=== PATIENT | male | born 1950 | race Caucasian/White ===

== ENCOUNTER 2019-02-03 05:26 | Inpatient (IN) | payer OTHER, BC ==
[2019-01-12 09:28] LABS: HEMATOCRIT 44.8 % (42.0-52.0); HEMOGLOBIN 15.1 gm/dL (14.0-18.0); MCHC 33.6 g/dL (28.0-37.0); MCV 92.1 fL (80.0-100.0); RBC 4.86 mil/uL (4.50-6.00); WBC 5.3 thou/uL (4.0-11.0)
[2019-01-12 09:36] LABS: ALBUMIN 3.8 g/dL (3.4-5.0); CALCIUM 9.2 mg/dL (8.5-10.1); CREATININE 0.9 mg/dL (0.7-1.3); POTASSIUM 4.4 mmol/L (3.5-5.1)
[2019-01-12 09:39] LABS: URINE BILIRUBIN NEGATIVE (Negative); URINE BLOOD NEGATIVE (Negative); URINE CLARITY CLEAR; URINE COLOR YELLOW; URINE GLUCOSE-RANDOM* NEGATIVE (Negative); URINE KETONES NEGATIVE (Negative); URINE LEUKOCYTES-REFLEX NEGATIVE (Negative); URINE NITRITE-REFLEX NEGATIVE (Negative); URINE PROTEIN (DIPSTICK) NEGATIVE (Negative); URINE UROBILINOGEN 0.2 E.U./dl (0.2-1.0)
[2019-01-12 09:44] LABS: PROTIME 10.5 Seconds (9.3-11.4)
--- NOTE | 2019-01-12 12:36 | EKG ---
[place] [address] [facility] [employer] [place] [address] ELECTROCARDIOGRAM REPORT Name: VIDYA MARTINEZ Room #: PRE IN .R.#: [id number] ������������������ Admission: ������������������ Attend Phys: Isidoro Damon MD Discharge: ������������������ Date of : 48 Report #: [id number] ����������������������������������������������������������������� [id number] THIS REPORT FOR: //name// [facility] Test Date: 2019-01-12 Test Time: 09:32:38 Pat Name: VIDYA MICHELLE Department: Room: Gender: Shale Miner: lorenza : 1950 Requested By: Isidoro Damon Order Number: [id number] MD: Myrno Valle Measurements Intervals [place] Rate: 71 P: 66 CA: 156 QRS: 63 QRSD: 110 T: 26 QT: 400 QTc: 435 Interpretive Statements Sinus rhythm RSR' in V1 or V2, right VCD No previous ECG available for comparison Electronically Signed On 01-12-2019 12:36:33 CDT by Myron Valle [email or web address] ��������������������������������������������� <ELECTRONICALLY SIGNED> ���������������������������������������� By: Myron Valle MD, [facility] ��������������������������������������������� 01/12/19 1236 0932 09 Myron Valle MD, [facility] /EPI
[~2019-02-03] VITALS: Ht 177.8 cm; Wt 77.1 kg
--- NOTE | ~2019-02-03 | O ---
[facility] [place] [address] OPERATIVE REPORT Name: VIDYA MARTINEZ Room #: 150-7 ADM IN M.R.#: [id number] Admission: 02/03/19 ������������������ Attend Phys: Isidoro Damon MD Discharge: ������������������ Date of : 48 Report #: [id number] THIS REPORT FOR: //name// CC: FAM unknown Isidoro Damon DATE OF SERVICE: 02/03/2019 PREOPERATIVE DIAGNOSIS: Bilateral knee osteoarthritis. POSTOPERATIVE DIAGNOSIS: Bilateral knee osteoarthritis. PROCEDURE: Bilateral total knee arthroplasty using Navio robotic assistance. SURGEON: Isidoro Damon MD. MAIL ORDER SORTER: Odalys Saxena PA-C. INDICATIONS FOR MAIL ORDER SORTER: Throughout the case, extensive retraction and manipulation of the knee were required. This was afforded to me by my him assistant. ANESTHESIA: LMA with bilateral adductor canal block. IMPLANTS: For the right knee is [employer] size 6 Legion cobalt chrome posterior stabilized femur, a size 5 tibia, size 11 highly constrained polyethylene and a size 35 patella. For the left knee is a size 6 Legion cobalt chrome posterior stabilized femur, a size 5 tibia, size 9 highly constrained polyethylene and a size 35 patella. TOURNIQUET TIME: 69 minutes for the left knee and 62 minutes for the right knee. ESTIMATED BLOOD LOSS: 50 mL. COMPLICATIONS: None. SPECIMENS: None. CONDITION UPON LEAVING THE OPERATING ROOM: Stable. INDICATIONS FOR PROCEDURE: The patient is a 68-year-old gentleman with bilateral knee osteoarthritis. He had failed conservative measures for this and after discussion with him, he elected for bilateral total knee arthroplasty. DESCRIPTION OF PROCEDURE: Risks, benefits, alternatives, complications were [facility] [address] [place] [address] OPERATIVE REPORT Name: VIDYA MARTINEZ Room #: 150-7 ADM IN M.R.#: [id number] Admission: 02/03/19 ������������������ Attend Phys: Isidoro Damon MD Discharge: ������������������ Date of : 48 Report #: [id number] discussed in detail with the patient including but not limited to risk of anesthesia, risk of damage to nerves, arteries, blood vessels, risk for infection, bleeding, risk for continued knee pain and need for reoperation. Informed consent was obtained from the patient. Bilateral knees were appropriately marked in the preoperative holding area. Adductor canal blocks were placed by Anesthesia. IV Ancef was given for preoperative antibiotics. He was brought to the operating room and placed in the supine position on operating room table. LMA anesthesia was induced without complication. Tourniquets were placed on bilateral thighs. Bilateral legs were then prepped and draped in normal sterile fashion. Timeout was performed properly identifying the patient and procedure as well as the instrumentation and implants. All in the operating room were in agreement. The knee replacements were done in sequence with the left knee phalanx first. The left lower extremity was exsanguinated, tourniquet was inflated. Tourniquet time was again 69 minutes for the left and 62 minutes for the right. This dictation applies to both the right and the left knees. The approach to the knee was made with 10 blade through the skin. Dissection was taken down sharply to the fascia and deep flaps were developed medially and laterally. Fresh 10 blade was used to make a medial parapatellar arthrotomy and the knee was inspected. There was severe medial compartment osteoarthritis with moderate lateral and patellofemoral involvement. ACL and PCL were removed sharply. Reference pins were placed in the femur and the tibia. The knee was digitally mapped using the Hangar Seven robotic system. Intraoperative plan was made and we sized the size 6 femur and a size 5 tibia. After acceptance of the intraoperative plan, the distal femoral cut was made with the Navio bur. The 4-in-1 cutting block was placed. The anterior, posterior and chamfer cuts were made. Attention was then turned to the tibia. The remainder of the menisci removed with Bovie cautery and the tibial resection guide was pinned in place using the Navio for placement. Tibial resection was made. After this, flexion and extension gaps were checked and found to be tight medially in extension both on bilateral knees, so limited medial release was performed using the pie crust technique. This balanced the knee well medially. The tibia was sized, found to be a size 5. A size 5 tibial trial was placed, pinned and punched. A size 6 femoral trial was placed and the box cut was made. This was then trialed with a size 9 polyethylene on the left. Knee was taken through range of motion, found to have 1 mm to 1.5 mm of laxity medially throughout range of motion. I did have about 3-4 mm laterally, it was felt that a highly constrained liner would be needing. 5 mm was taken off the posterior surface of the patella and a size 35 patellar trial button was placed. Knee was taken through range of motion, found to be stable, found to have good patellar tracking. Trial components were removed. Bony ends were thoroughly irrigated with normal saline. A final size 5 tibia, size 6 Legion cobalt chrome posterior stabilized femur and a size 35 patella were cemented in place using standard cementation techniques. While the cement cured, periarticular injection consisting of morphine, ropivacaine, epinephrine and Toradol was placed around the knee joint capsule. After the cement cured, the tourniquet was deflated. Hemostasis was obtained with Bovie cautery. The size 9 highly constrained [facility] [address] [place] [address] OPERATIVE REPORT Name: VIDYA MARTINEZ Room #: 150-7 ADM IN M.R.#: [id number] Admission: 02/03/19 ������������������ Attend Phys: Isidoro Damon MD Discharge: ������������������ Date of : 48 Report #: [id number] polyethylene was used for the left knee. The right knee required a size 11 highly constrained polyethylene. A gram of vancomycin was placed deep in the joint. Fascia was closed with 0 Vicryl, skin was closed with 2-0 Vicryl, 3-0 Monocryl. Dermabond and ERICK dressing were applied. The patient tolerated these procedures well and went to the recovery room under care of anesthesia postoperatively. ��������������������������������������������� ���������������������������������������� By: ��������������������������������������������� 1321 1440 Isidoro Damon MD /nt
[~2019-02-03 05:26] MED LIST: ASPIR 8181 MG PO; IBUPROFEN 800800 M1 PO; MULTI VITAMIN1 EACH PO; SYNTHROID25 MC1 PO
[2019-02-03 07:42] VITALS: BP 133/86
[2019-02-03 15:24] VITALS: BP 122/72
[2019-02-03 21:00] VITALS: BP 11/61
--- NOTE | 2019-02-03 21:32 | NUR ---
Admitted to the floor from OR, transferred to room safely. A+Ox4. Due medications given as prescribed. On room air. With SL at L FA- intact, flushing well; started IVF at 100cc/hr as prescribed. Complained of pain, due PRN pain meds given as prescribed. With ERICK dressing intact, on Polar packs- C/D/I, no bleeding noted. Pt able to tolerate clear liquids- diet advance to regular diet as noted and prescribed. Visited by relatives today. Falls risk- falls bundle in place. Pt seen by PT upon arrival to [place]. NVS intact, vital signs stable. SCDs and TEDs on patient. Pt asked for increase in dosage of pain meds- called in at Dr Damon's office because as per pt he's having 7.7mg/325 previously. MAY Pinon informed and advised her re: pt's other pain meds such as Morphine IV and [place] tablets 5/325- Pt want's to stay away from Morphine IV as much as possible thus requesting to increase dose of Musselshell- Dr Pinon agreed and to put in orders for her. Admission care rendered, forms signed. Vital signs stable. To continue care.
[2019-02-04 00:10] VITALS: BP 91/53
--- NOTE | 2019-02-04 03:58 | NUR ---
Care assumed of patient at 1915: Patient alert and oriented x4. Patient pleasant and cooperative. Patient had visitors from family this evening and was talking and cheerful. Patient has been using urinal to empty bladder, continent of bladder. Patient has been receiving Hydrocodone 7.5mg/325mg consistently every 4 hours as ordered. Patient's pain has been managed around 1-3 level. Patient received IV abx and tolerated well. Patient has polar ice to bilateral knees. Patient has ERICK dressing to bilateral knees. Dressings clean, dry and intact. Patient took HS medications without difficulty. Drinking plenty of fluids. Denies nausea/vomiting at this time. Patient has been resting quietly throughout the night.
[2019-02-04 04:00] VITALS: BP 109/59
[2019-02-04 06:07] LABS: HEMATOCRIT 32.2 % (42.0-52.0); HEMOGLOBIN 10.8 gm/dL (14.0-18.0); MCH 31.1 pg (26.0-34.0); MCHC 33.7 g/dL (28.0-37.0); MCV 92.5 fL (80.0-100.0); RBC 3.48 mil/uL (4.50-6.00); RDW 13.9 % (10.5-14.5); WBC 13.9 thou/uL (4.0-11.0)
[2019-02-04 07:48] VITALS: BP 101/61
[2019-02-04 14:57] VITALS: BP 131/57
--- NOTE | 2019-02-04 15:54 | NUR ---
PT ADMITTED RELATED TO BILATERAL TKR. CM REVIEWED CHART AND SPOKE WITH CARE TEAM. CM MET WITH PT AT BEDSIDE THIS DAY. PT IS A&O X4. CM ROLE INTRODUCED. PT INDICATED HE LIVES IN AN APARTMENT WITH HIS WITH 1 STEP TO ENTER AND 32 STEPS INSIDE. PT INDICATED HE HAS A FWW AND A WC FOR USE UPON DC. PT INDICATED HE IS ESTABLISHED WITH OP PT AT [facility]. IT IS ANTICPATED THAT PT WILL DISCHARGE HOME THIS EVENING. NO OTHER CM INTERVENTION INDICATED. CASE CLOSED.
[2019-02-04 17:05] VITALS: BP 131/57
--- NOTE | 2019-02-04 18:38 | NUR ---
ASSUMED CARE OF PATIENT AT 0715, PATIENT ALERT AND ORIENTED X 4. PATIENT UP WITH ASSIST X 1 WITH WALKER. PATIENT C/O MILD PAIN WITH BILATERAL KNEES, ERICK DRESSING IN PLACE, TK HOSE IN PLACE. PATIENT HAS LEFT FOREARM IV IN PLACE WITH NS AT 100CC/HR UNTIL 2ND BAG FINISH. PATIENT WORKED WITH EVANGELISTA/PT AND DID REALLY WELL, PATIENT WANTS TO GO HOME. MIL/INDUSTRIAL ROOFER HELPER HERE AND STATED THEY WANTED PATIENT TO WAIT UNTIL TOMORROW, DUE TO BILATERAL KNEE REPLACEMENTSM BUT WAIT UNITL AFTER AFTERNOON PT AND IF EVANGELISTA/PT FEELS PATIENT OK TO GO HOME, THEN MAYBE DISCHARGE TONIGHT OT TOMORROW AFTER AM PHYSICAL THERAPY. EVANGELISTA/PT DID STEPS AND PATIENT DID WELL, DR ANN HERE LATE THIS EVENING, AND WILL DISCHARGE PATIENT TO HOME WITH PRESCRIPTIONS. PRESENT FOR TRANSPORT TO HOME. ALL DISCHARGE PAPERWORK AND ALL PERSONAL BELONGINGS SENT WITH THE PATIENT. LEFT FOREARM IV REMOVED PRIOR TO DISCHARGE.
== END 2019-02-04 18:20 | disposition home or self-care (01) | DRG 462 ==
LOC: TBA 05:26 → 4W 05:26 → PRE 05:47 → 4W 15:21 → ENTRNSPT 02-04 17:23 → 4W 02-04 18:20
PROVIDERS: ADMIT Orthopaedic Surgery
DX: M17.0 Bilateral primary osteoarthritis of knee (principal); M19.012 Primary osteoarthritis, left shoulder
CPT/HCPCS: 10047; 50010; 50101; 50415; 50954; 51130; 51225; 51320; 52001; 52282; 53000; 53078; 53364; 54118; 56527; 56528; 57095; 57103; 57110; 57127; 57180; 62110; 62900; 70005